=== PATIENT | female | born 1945 | race Caucasian/White ===

== ENCOUNTER 2017-10-22 05:51 | Inpatient (IN) | payer OTHER ==
[2017-10-17 09:55] LABS: URINE BILIRUBIN NEGATIVE (Negative); URINE BLOOD NEGATIVE (Negative); URINE CLARITY CLEAR; URINE COLOR YELLOW; URINE GLUCOSE-RANDOM NEGATIVE (Negative); URINE KETONES NEGATIVE (Negative); URINE LEUKOCYTES-REFLEX 1+ (Negative); URINE NITRITE-REFLEX NEGATIVE (Negative); URINE PROTEIN NEGATIVE (Negative); URINE SPECIFIC GRAVITY <= 1.005 (1.005-1.030); URINE UROBILINOGEN 0.2 E.U./dl (0.2-1.0)
[2017-10-17 10:09] LABS: CASTS None Seen /LPF (None Seen); CRYSTALS None Seen /LPF (None Seen); SQUAMOUS 0-3 Few /LPF (0-3); URINE RBC None Seen /HPF (0-2); URINE WBC-REFLEX 0-5 Rare /HPF (0-5)
[2017-10-17 10:16] LABS: HEMATOCRIT 41.3 % (37.0-47.0); HEMOGLOBIN 13.9 gm/dL (12.0-15.0); MCH 31.1 pg (26.0-34.0); MCHC 33.6 g/dL (28.0-37.0); MCV 92.5 fL (80.0-100.0); MPV 8.5 fl. (7.2-11.1); RBC 4.46 mil/uL (4.20-5.00); RDW-CV 12.4 % (10.5-14.5); WBC 6.1 thou/uL (4.0-11.0)
[2017-10-17 10:28] LABS: INR 1.1
[2017-10-17 10:35] LABS: ALBUMIN 3.9 g/dL (3.4-5.0); CALCIUM 9.1 mg/dL (8.5-10.1); CREATININE 0.9 mg/dL (0.6-1.3); POTASSIUM 3.8 mmol/L (3.5-5.1); TOTAL BILIRUBIN 0.6 mg/dL (<0.1-1.0); TOTAL PROTEIN 7.6 g/dL (6.4-8.2)
--- NOTE | 2017-10-18 14:12 | EKG ---
[place] [address] ELECTROCARDIOGRAM REPORT Name: AMNASA ALVAREZ Room: [facility]#: [id number] Admission: Attend Phys: Mane Herrera Discharge: Date of : 41 Report #: [id number] THIS REPORT FOR: //name// [facility] Test Date: 2017-10-17 Test Time: 09:01:19 Pat Name: MANASA ALVAREZ Department: Room: Gender: F Lace Inspector: RUCHI : 1945 Requested By: Nato Rob Order Number: [id number] Reading MD: Duane Ordoñez Measurements Intervals Beggs Rate: 72 P: 76 VA: 133 QRS: 60 QRSD: 92 T: 55 QT: 397 QTc: 435 Interpretive Statements Sinus rhythm Minimal ST depression, anterolateral leads No previous ECG available for comparison Electronically Signed On 10-18-2017 14:11:50 AIR CONDITIONING SHEET METAL INSTALLER by Duane Ordoñez [email or web address] <ELECTRONICALLY SIGNED> By: Duane Ordoñez MD, [facility] 10/18/17 1411 0901 0901 Duane Ordoñez MD, FACC /EPI
[~2017-10-22] VITALS: Ht 162.6 cm; Wt 72.6 kg
[~2017-10-22 05:51] MED LIST: ASPIR 8181 M1 PO; IBUPROFEN 200200 M1 PO; LIPITOR 20 MG T20 M1 PO; NORVASC5 MG PO; OMEPRAZOLE 20 M20 M1 PO; PROBIOTIC1 EAC1 PO; SYNTHROID75 MCG PO; VITAMIN D1000 UNI1 PO; VITAMINC500 PO; ZINC30 M1 PO; ZOLOFT25 MG PO
[2017-10-22 07:28] VITALS: BP 136/76
[2017-10-22 12:50] VITALS: BP 107/60
[2017-10-22 16:00] VITALS: BP 125/103
[2017-10-22 17:35] VITALS: BP 123/62
--- NOTE | 2017-10-22 18:09 | NUR ---
PATIENT IS ALERT AND ORIENTED TODAY, HAD KNEE SURGERY AND IS DOING WELL SINCE COMING TO THE FLOOR. VITAL SIGNS HAVE BEEN STABLE ON 2 LITERS OF OXYGEN. PAIN IS CONTROLLED WELL WITH ORAL PAIN MEDICATIONS. POLAR PACK IN PLACE, IV IN LEFT HAND WORKS WELL AND CONTINOUS PULSE OXIMETER IS ON. CALL LIGHT IS IN REACH, BED ALARM IS ON, FAMILY IS AT BEDISDE, WILL CONTINEU TO MONITOR.
[2017-10-22 20:00] VITALS: BP 143/68
[2017-10-23 00:16] VITALS: BP 138/72
[2017-10-23 04:44] LABS: HEMATOCRIT 32.4 % (37.0-47.0); HEMOGLOBIN 11.1 gm/dL (12.0-15.0)
[2017-10-23 07:25] VITALS: BP 121/53
--- NOTE | 2017-10-23 07:41 | NUR ---
SKILLED OT EVAL AND TREAT DEFERRED. P.T. TO ADDRESS THERAPY NEEDS
--- NOTE | 2017-10-23 08:24 | NUR ---
ASSUMED CARE OF PATIENT AT APPROXIMATELY 1999. UPON FIRST ASSESSMENT, PATIENT REQUESTED PRN PAIN MEDICATIONS. PATIENT A/O X 4 AND VSS. PATIENT REMAINS ON 2L O2 AND CONTINUES TO BE ON CONTINUOUS PULSE OX. OXYGEN SATS ARE WELL WITHIN NORMAL LIMITS (ABOVE 95%). PATIENT EXPERIENCED QUITE A BIT OF PAIN OVERNIGHT WITH PAIN LEVELS OF 8-9/10 ON PAIN SCALE. PAIN MEDICATION WAS GIVEN X 3 DURING NIGHT FOR HER LEFT HIP PAIN. HOURLY ROUNDS PERFORMED. NURSING TO FOLLOW-UP NECESSARY. ALL FALL PRECAUTIONS IN PLACE, INCLUDING CALL LIGHT WITHIN REACH. WILL CONTINUE TO MONITOR CLOSELY.
--- NOTE | 2017-10-23 16:52 | NUR ---
CM ASSESSMENT: PT INFORMED OF ROLE OF CM. PT STATES SHE LIVES HOME ALONE.USES A WALKER,PERFORMS OWN ADLS AND DRIVES. PT STATES SHE PLANS TO USE HH UPON DC AND WANTS TO USE [facility]. POSSIBLE DC IN AM
[2017-10-23 20:00] VITALS: BP 145/57
[2017-10-23 23:47] VITALS: BP 111/53
[2017-10-24 03:14] VITALS: BP 103/47; BP 123/61
[2017-10-24 04:39] LABS: HEMATOCRIT 31.4 % (37.0-47.0); HEMOGLOBIN 10.7 gm/dL (12.0-15.0)
--- NOTE | 2017-10-24 05:42 | NUR ---
ASSUMED CARE OF PATIENT AT APPROXIMATELY 2000. UPON FIRST ASSESSMENT, PATIENT A/O X 4 AND VSS. PATIENT DENIED ANY PAIN DURING INITIAL ASSESSMENT AND HAS ONLY TAKEN THE PAIN MEDICAION SO THAT IT WILL WORK WHEN THE PATIENT IS PUT ON HER CPM MACHINE. PATIENT COMPLETED APPROXIMATELY 1 1/2 HOUR OF CPM LAST NIGHT (10/23/17) WHEN PUT ON MACHINE. NURSING TO FOLLOW-UP NECESSARY. ALL FALL PRECAUTIONS IN PLACE, INCLUDING CALL LIGHT WITHIN REACH. WILL CONTINUE TO MONITOR CLOSELY.
[2017-10-24 08:48] VITALS: BP 99/58
[2017-10-24] MEDS ORDERED: XARELTO10 MG PO (10:03)
[2017-10-24] MEDS ORDERED: PERCOCET PO (10:06)
[2017-10-24 10:08] VITALS: BP 99/58
--- NOTE | 2017-10-24 12:00 | NUR ---
PT.TO DISCHARGE TODAY WITH HH. DAUGHTER WORKS FOR [employer] BUT PT.'S INSURANCE NO LONGER ACCEPTS THEM. PT.CHOSE [facility]. FAXED REFERRAL AND DISCHARGE ORDERS TO [facility] . THEY WILL SEE PT.TOMORROW. CALLED IN XARELTO WRITTEN TO [facility] . COPAY IS $167. DISCUSSED WITH PT. SHE SAID SHE WOULD GET IT EVEN THOUGH THAT SEEMS AWFULLY HIGH. PT.HAS WALKER AT HOME. DAUGHTER WILL BE STAYING WITH PT. AT HOME.
--- NOTE | 2017-10-24 12:12 | NUR ---
ASSUMED CARE OF PATIENT AFTER REPORT THIS MORNING. PATIENT AWAKE, ALERT, AND ORIENTED APPROPRIATELY. PHYSICAL ASSESSMENT COMPLETED AND CHARTED. SCHEDULED MEDICATIONS GIVEN, SEE EMAR FOR DOCUMENTATION. VITAL SIGNS STABLE. OXYGEN SATURATION WITHIN NORMAL LIMITS ON ROOM AIR. PATIENT HAS TRANSFERRED WITH ASSISTANCE FROM STAFF, [facility], AND WALKER. USES CALL LIGHT APPROPRIATELY. RECEIVED ORDERS TO DISCHARGE PATIENT WITH HOME HEALTH. DISCHARGE PAPERWORK COMPLETED AND SIGNED BY ALL APPROPRIATE PARTIES, ON PATIENT'S CHART. IV DISCONTINUED. PATIENT DISCHARGED AT THIS TIME. ESCORTED TO PARKING LOT BY MIGUEL. SCRIPTS GIVEN TO AND DISCUSSED WITH PATIENT.
--- NOTE | 2017-10-24 14:15 | S ---
[place] [address] SURGICAL PATH RPT PROCEDURE Name: ALMA ALVAREZ Room: [address] IN [facility]#: [id number] Admission: 10/22/17 Date of : 41 Discharge: 10/24/17 Report #: [id number] Path Case #: [id number] PATHOLOGY REPORT COLLECTION DATE: 10/22/2017 RECEIVED DATE: 10/23/2017 SUBMITTING PHYS: Dr. Nato Rob II OTHER PHYS: Dr. Tremaine Nair SPECIMEN(S) RECEIVED: A.Left knee bone and tissue * * * * * * * * * * * * FINAL DIAGNOSIS: Left knee bone and tissue, total knee replacement: - Benign synovium and meniscus and benign bone and cartilage with degenerative changes. (SHASHANK:db; 10/24/2017) PATHOLOGIST: Wai Powers M.D. REPORT ELECTRONICALLY SIGNED BY: Wai Powers M.D. DATE/TIME: 10/24/2017 14:14 * * * * * * * * * * * * GROSS PATHOLOGY: Received in formalin labeled "Alma Alvarez left knee bone and tissue," are multiple segments of bone, including tibial plateau, measuring 13.5 x 11.5 x 2.4 cm in aggregate dimensions with admixed soft tissue; meniscus is present. The specimen shows focal eburnation of the articular surfaces. Material Handler 2Nd Shift sections of bone and soft tissue are submitted in cassette A1, following decalcification. (SDY; 10/23/2017) CLINICAL HISTORY: Left knee degenerative joint disease INITIAL CPT CODE(S): A; 70538, 28280 Professional services performed by [facility] at [facility], [address] [place] [address] [address], [place] [address]. Technical services performed by [facility] at [address] [place] [address], [place] [address]. [place] [address] SURGICAL PATH RPT PROCEDURE Name: ALMA ALVAREZ Room: [address]#: [id number] Admission: 10/22/17 Date of : 41 Discharge: 10/24/17 Report #: [id number] Path Case #: [id number] [facility] [address] [address] PHONE: [phone] DIRECTOR: Santos Kaminski M.D. * * * END OF REPORT * * *
--- NOTE | 2017-11-06 16:33 | OP ---
[facility] [address] [place] [address] OPERATIVE REPORT Name: MANASA ALVAREZ Room: [address]#: [id number] Admission: 10/22/17 Attend Phys: Mane Herrera Discharge: 10/24/17 Date of : 41 Report #: [id number] THIS REPORT FOR: //name// CC: Roverto Jackson DATE OF SERVICE: 10/22/2017 PREOPERATIVE DIAGNOSIS: Left knee osteoarthritis. POSTOPERATIVE DIAGNOSIS: Left knee osteoarthritis. PROCEDURE: Left total knee arthroplasty with Navio. ANESTHESIA: General endotracheal. ESTIMATED BLOOD LOSS: 50 mL. ANTIBIOTICS: Ancef preoperatively. DRAINS: Medium Hemovac. COMPLICATIONS: None. DISPOSITION: Stable to recovery room. SURGEON: Nato Rob II, DO [employer] CONSULTANT: JONNA Nesbitt IMPLANTS: Listed in the operative record and progress note. BRIEF HISTORY: The patient was seen in preoperative area. Preoperative H and P was performed. Site was marked, questions were answered. Risks and benefits were discussed with the patient in detail about surgery. The patient wished to proceed and assumed all risks. DESCRIPTION OF PROCEDURE: The patient was taken to operative suite, placed supine on the operating table, administered appropriate anesthesia. The patient's leg was placed with a well-padded tourniquet applied to the upper thigh, which was inflated to 300 mmHg after gravity exsanguination for the duration of the procedure. The operative knee was sterilely prepped and draped. Surgery began by midline incision and carried down to subcutaneous tissues. The medial parapatellar arthrotomy was then performed, carried down to bone. The patella was inverted and excess soft tissues [place] [address] OPERATIVE REPORT Name: MANASA ALVAREZ Room: [address]#: [id number] Admission: 10/22/17 Attend Phys: Mane Herrera Discharge: 10/24/17 Date of : 41 Report #: [id number] from around the femur and tibia. The tibia and femoral tracking pins were then placed and alignment guides were then utilized for the Navio robotic surgery. These were then registered in appropriate fashion. The bone edges were then painted utilizing the 3D tracking alignment guide. The operative plan was then selected for appropriate sizes and cuts. The robotic assistance was then utilized for drilling of the holes on the femur and alignment of the cutting guides for the distal femur. This was then pinned in appropriate position and appropriate cut was made. The 4-in-1 cutting block was then pinned into appropriate position, checked for rotational alignment and appropriate cuts were made. Attention was then turned to the tibia. Excess menisci were removed from around the tibia as well as any further osteophytes. The tibial cutting guide was then checked for rotational alignment with the robotic assistance and pinned into appropriate position. Appropriate cut was made. Excess tibial bone was then removed as well as meniscus were excised and a rongeur was utilized. Hemostasis was obtained with electrocautery. The tibial baseplate was then applied, checked for rotational alignment and pinned into appropriate position. Reamer was then applied and box cut was reamed. It was then trialed with the appropriate sized spacer. This was shown to have excellent flexion, extension, excellent range of motion of the knee. The patella was then reamed in appropriate fashion. Three peg holes were then drilled and it was then trialed, shown to have excellent flexion, extension, excellent tracking of the patellar groove. The final evaluation was then performed utilizing robotic system, shown to have excellent range of motion of the knee with stability in both the medial and lateral regions. These trials were then removed. Tracker pins were then removed as well. Bone ends were cleansed with Pulsavac irrigation. Cement was punched in appropriate fashion and cement was then mixed and applied to the final implants as well as the bone. Final implants were then malleted into position and held with the knee in extension to allow the cement to cure. After it was cured, excess was removed utilizing [place] and osteotome. The wound was then copiously irrigated and a final spacer was then malleted in position. Tourniquet was deflated. Hemostasis was maintained with electrocautery. Pain cocktail was injected. PRP gel was sprayed throughout the internal aspect of the knee. A medium Hemovac drain was then applied. Capsule was closed with #2 FiberWire and #1 Vicryl in [id number] fashion. Skin was closed with 2-0 Vicryl and running 3-0 Monocryl. Dermabond and sterile dressing applied as well as Greg wrap and PolarCare. The patient transferred to recovery room in stable condition. Counts were correct throughout the procedure. <ELECTRONICALLY SIGNED> By: Nato Rob II, DO 11/06/17 1633 1220 [id number] Rob II DO /nt
== END 2017-10-24 12:15 | disposition home health service (06) | DRG 470 ==
LOC: M.PRE 05:51 → M.TBA 06:49 → M.PRE 07:45 → M.ORTHSURG 12:27 → M.PRE 13:08 → M.ORTHSURG 10-24 12:15
PROVIDERS: Orthopaedic Surgery; ADMIT Internal Medicine
PROC: 0SRD0J9 Replacement of Left Knee Joint with Synthetic Substitute, Cemented, Open Approach (ICD-10-PCS; principal; 2017-10-22)
DX: M17.12 Unilateral primary osteoarthritis, left knee (principal); Z79.899 Other long term (current) drug therapy; E03.9 Hypothyroidism, unspecified; I10 Essential (primary) hypertension; E78.5 Hyperlipidemia, unspecified; K21.9 Gastro-esophageal reflux disease without esophagitis